=== PATIENT | female | born 1930 | race Caucasian/White ===

== ENCOUNTER 2016-09-18 05:23 | Emergency (ER) | payer OTHER ==
[~2016-09-18] VITALS: Ht 157.5 cm; Wt 49.7 kg
[~2016-09-18 05:23] MED LIST: AREDS PO; ASPIR 8181 M1 PO; ASPIRIN81 M1 PO; CEFTIN500 MG PO; CLEOCIN300 MG PO; CLINDAMYCIN HC300 MG PO; FUROSEMIDE40 MG PO; HYDROCHLOROTHIA25 MG PO; KEFLEX500 MG PO; KLOR-CON M2020 MEQ PO; TOLTERODINE TART4 MG PO; ULTRAM50 MG PO; VITAMIN C1000 MG PO; VITAMIN D31000 UNI2 PO
[2016-09-18 05:55] LABS: HEMATOCRIT 33.9 % (36.0-46.0); MCH 28.4 PG (29.0-34.0); MCHC 31.6 G/DL (30.0-36.0); MCV 89.9 FL (83-99); MEAN PLAT.VOLUME 10.6 uM^3 (9.5-12.4); PLATELET COUNT 206 K/uL (156-360); RBC DIS.WIDTH-CV 15.9 % (11.8-14.6); RBC DIS.WIDTH-SD 52.6 % (39-53); RED BLOOD COUNT 3.77 M/uL (3.80-5.20); WHITE BLOOD COUNT 3.5 K/uL (4.1-10.2)
[2016-09-18 06:15] LABS: CHLORIDE 105 mEq/L (99-109)
[2016-09-18 06:16] LABS: POTASSIUM 3.8 mEq/L (3.7-5.4); SODIUM 143 mEq/L (136-147)
[2016-09-18 06:17] LABS: GLUCOSE 95 mg/dL (70-99)
[2016-09-18 06:19] LABS: ANION GAP 12 MEQ/L (2-14)
[2016-09-18 06:21] LABS: GFR ESTIMATE (CALCULATED) 56 mL/min/; TROP-I INTERPRETATION NEGATIVE; TROPONIN-I < 0.01 ng/mL (0.0-0.30)
[2016-09-18 06:22] LABS: UREA NITROGEN (BUN) 18 mg/dL (9-23)
[2016-09-18 09:37] LABS: TROP-I INTERPRETATION NEGATIVE; TROPONIN-I < 0.01 ng/mL (0.0-0.30)
[2016-09-18] MEDS ORDERED: KEFLEX500 MG PO (11:41)
[2016-09-18 12:09] VITALS: BP 146/59
== END 2016-09-18 12:12 | disposition home or self-care (01) ==
LOC: EME → EDBD 05:23 → EME 05:23
PROVIDERS: Emergency Medicine
DX: R07.89 Other chest pain (principal); S80.812A Abrasion, left lower leg, initial encounter; X58.XXXA Exposure to other specified factors, initial encounter; I10 Essential (primary) hypertension
CPT/HCPCS: 71020; 80048; 84484; 85027; 93005; 99281; 99285

== ENCOUNTER 2016-09-27 03:17 | Emergency (ER) | payer OTHER ==
[~2016-09-27] VITALS: Ht 121.9 cm; Wt 50.0 kg
[2016-09-27 04:19] LABS: HEMATOCRIT 31.9 % (36.0-46.0); MCH 28.9 PG (29.0-34.0); MCHC 32.3 G/DL (30.0-36.0); MCV 89.4 FL (83-99); MEAN PLAT.VOLUME 10.7 uM^3 (9.5-12.4); PLATELET COUNT 211 K/uL (156-360); RBC DIS.WIDTH-CV 15.8 % (11.8-14.6); RBC DIS.WIDTH-SD 52.4 % (39-53); RED BLOOD COUNT 3.57 M/uL (3.80-5.20); WHITE BLOOD COUNT 3.5 K/uL (4.1-10.2)
[2016-09-27 04:30] LABS: ADD MIUA? YES; BILIRUBIN NEGATIVE; BLOOD NEGATIVE; COLOR YELLOW ((YELLOW)); GLUCOSE (STRIP) NEGATIVE; KETONES NEGATIVE; LEUKOCYTES MODERATE; NITRITE NEGATIVE; PROTEIN (STRIP) NEGATIVE; SPECIFIC GRAVITY 1.024 (1.000-1.030)
[2016-09-27 04:32] LABS: CHLORIDE 106 mEq/L (99-109); POTASSIUM 3.8 mEq/L (3.7-5.4); SODIUM 141 mEq/L (136-147)
[2016-09-27 04:33] LABS: GLUCOSE 97 mg/dL (70-99)
[2016-09-27 04:35] LABS: ANION GAP 7 MEQ/L (2-14)
[2016-09-27 04:37] LABS: GFR ESTIMATE (CALCULATED) 50 mL/min/
[2016-09-27 04:38] LABS: UREA NITROGEN (BUN) 21 mg/dL (9-23)
[2016-09-27 04:51] LABS: BACTERIA NONE SEEN /HPF; EPITHELIAL CELLS RARE /HPF; MUCUS TRACE /LPF; RED BLOOD CELLS 0-5 /HPF (0-5); UCUL ADDED? NO
[2016-09-27 07:50] VITALS: BP 154/59
== END 2016-09-27 07:53 | disposition home or self-care (01) ==
LOC: EME 03:17
PROVIDERS: Emergency Medicine
DX: F22 Delusional disorders (principal); T14.8 Other injury of unspecified body region; K21.9 Gastro-esophageal reflux disease without esophagitis; I10 Essential (primary) hypertension
CPT/HCPCS: 80048; 81003; 85027; 99281; 99284

== ENCOUNTER 2016-10-28 23:16 | Observation (INO) | payer OTHER ==
[~2016-10-28] VITALS: Ht 180.3 cm; Wt 52.4 kg
[2016-10-29 00:18] LABS: EOSINOPHIL (%) 3.2 % (0-5); EOSINOPHIL COUNT 0.1 K/uL (0-0.3); HEMATOCRIT 34.4 % (36.0-46.0); IMMATURE GRANULOCYTE (%) 0.3 % (0.0-0.7); INSTRUMENT ABS NEUTROPHIL CT 1.9 K/uL; LYMPHOCYTE COUNT 1.2 K/uL (1.0-2.8); MCH 28.1 PG (29.0-34.0); MCHC 31.7 G/DL (30.0-36.0); MCV 88.7 FL (83-99); MEAN PLAT.VOLUME 10.7 uM^3 (9.5-12.4); MONOCYTE COUNT 0.2 K/uL (0-0.8); NEUTROPHIL (%) 54.2 % (45-76); NEUTROPHIL COUNT 1.9 K/uL (1.8-6.4); PLATELET COUNT 204 K/uL (156-360); RBC DIS.WIDTH-CV 16.1 % (11.8-14.6); RBC DIS.WIDTH-SD 52.6 % (39-53); RED BLOOD COUNT 3.88 M/uL (3.80-5.20); WHITE BLOOD COUNT 3.4 K/uL (4.1-10.2)
[2016-10-29 00:27] LABS: CHLORIDE 105 mEq/L (99-109); POTASSIUM 3.8 mEq/L (3.7-5.4); SODIUM 144 mEq/L (136-147)
[2016-10-29 00:29] LABS: GLUCOSE 131 mg/dL (70-99)
[2016-10-29 00:31] LABS: ANION GAP 9 MEQ/L (2-14)
[2016-10-29 00:33] LABS: GFR ESTIMATE (CALCULATED) 50 mL/min/
[2016-10-29 00:34] LABS: UREA NITROGEN (BUN) 15 mg/dL (9-23)
[2016-10-29 00:39] LABS: TROP-I INTERPRETATION NEGATIVE; TROPONIN-I 0.02 ng/mL (0.0-0.30)
[2016-10-29 04:08] LABS: TOTAL BILIRUBIN 0.6 mg/dL (0.0-1.0)
[2016-10-29 04:10] LABS: ALKALINE PHOSPHATASE 68 IU/L (3-129)
[2016-10-29 04:12] LABS: DIRECT BILIRUBIN 0.2 mg/dL (0.0-0.3)
[2016-10-29 04:36] LABS: HDL CHOLESTEROL 76 MG/DL (Desirable>=50); LDL CHOLESTEROL 98 mg/dL (Desirable<100); NON-HDL CHOLESTEROL 111 mg/dL (Desirable<160); TOTAL CHOLESTEROL 187 mg/dL (Desirable<200); TRIGLYCERIDES 64 MG/DL (Normal: <150)
[2016-10-29 05:33] LABS: TROP-I INTERPRETATION NEGATIVE; TROPONIN-I 0.02 ng/mL (0.0-0.30)
[2016-10-29 07:24] LABS: Estimated Average Glucose 111 mg/dL (70-123); HEMOGLOBIN A1c (GLYCOHEMOGLOB) 5.5 % HGB (Below 5.7)
[2016-10-29 07:58] VITALS: BP 154/70
[2016-10-29 12:00] VITALS: BP 144/65
[2016-10-29 13:55] LABS: TROP-I INTERPRETATION NEGATIVE; TROPONIN-I < 0.01 ng/mL (0.0-0.30)
[2016-10-29 16:00] VITALS: BP 157/70
== END 2016-10-29 17:24 | disposition home or self-care (01) ==
LOC: EME 23:16 → EDOF 10-29 02:49 → ENRESERV 10-29 02:50 → 5WEST 10-29 07:38
PROVIDERS: Emergency Medicine; Hospitalist
DX: R07.9 Chest pain, unspecified (principal); R51 Headache; I10 Essential (primary) hypertension; K21.9 Gastro-esophageal reflux disease without esophagitis; I45.10 Unspecified right bundle-branch block; Z86.711 Personal history of pulmonary embolism; Z86.19 Personal history of other infectious and parasitic diseases; Z90.49 Acquired absence of other specified parts of digestive tract; D72.818 Other decreased white blood cell count; D64.89 Other specified anemias; M81.0 Age-related osteoporosis without current pathological fracture; Z82.49 Family history of ischemic heart disease and other diseases of the circulatory system; Z80.3 Family history of malignant neoplasm of breast; Z82.3 Family history of stroke; Z88.0 Allergy status to penicillin; Z88.2 Allergy status to sulfonamides; Z88.8 Allergy status to other drugs, medicaments and biological substances
CPT/HCPCS: 70450; 71010; 71275; 80048; 80061; 80076; 81003; 83036; 84484; 85025; 85379; 93005; 99281; 99284; G0378; J1200; J1644; J2765

== ENCOUNTER 2016-11-08 11:54 | Emergency (ER) | payer OTHER ==
[~2016-11-08] VITALS: Ht 144.8 cm; Wt 50.2 kg
[2016-11-08 13:27] LABS: EOSINOPHIL (%) 3.4 % (0-5); EOSINOPHIL COUNT 0.1 K/uL (0-0.3); HEMATOCRIT 34.6 % (36.0-46.0); IMMATURE GRANULOCYTE (%) 0.3 % (0.0-0.7); INSTRUMENT ABS NEUTROPHIL CT 2.3 K/uL; LYMPHOCYTE COUNT 0.7 K/uL (1.0-2.8); MCH 28.2 PG (29.0-34.0); MCHC 31.5 G/DL (30.0-36.0); MCV 89.4 FL (83-99); MEAN PLAT.VOLUME 10.4 uM^3 (9.5-12.4); MONOCYTE (%) 9.5 % (3-12); MONOCYTE COUNT 0.3 K/uL (0-0.8); NEUTROPHIL (%) 64.9 % (45-76); NEUTROPHIL COUNT 2.3 K/uL (1.8-6.4); PLATELET COUNT 219 K/uL (156-360); RBC DIS.WIDTH-CV 16.4 % (11.8-14.6); RBC DIS.WIDTH-SD 53.6 % (39-53); RED BLOOD COUNT 3.87 M/uL (3.80-5.20); WHITE BLOOD COUNT 3.5 K/uL (4.1-10.2)
[2016-11-08 13:40] LABS: CHLORIDE 106 mEq/L (99-109); POTASSIUM 4.1 mEq/L (3.7-5.4); SODIUM 142 mEq/L (136-147)
[2016-11-08 13:42] LABS: GLUCOSE 103 mg/dL (70-99)
[2016-11-08 13:43] LABS: ANION GAP 9 MEQ/L (2-14)
[2016-11-08 13:44] LABS: TOTAL BILIRUBIN 0.4 mg/dL (0.0-1.0)
[2016-11-08 13:45] LABS: ALKALINE PHOSPHATASE 70 IU/L (3-129)
[2016-11-08 13:46] LABS: GFR ESTIMATE (CALCULATED) > 59 mL/min/
[2016-11-08 13:47] LABS: UREA NITROGEN (BUN) 19 mg/dL (9-23)
[2016-11-08 13:50] LABS: ADD MIUA? NO; BILIRUBIN NEGATIVE; BLOOD NEGATIVE; COLOR STRAW ((YELLOW)); GLUCOSE (STRIP) NEGATIVE; KETONES NEGATIVE; LEUKOCYTES NEGATIVE; NITRITE NEGATIVE; PROTEIN (STRIP) NEGATIVE; SPECIFIC GRAVITY 1.013 (1.000-1.030); UCUL ADDED? NO; UROBILINOGEN 0.2 MG/DL (0.2-1.0)
[2016-11-08 14:39] LABS: SERUM ETHYL ALCOHOL < 10 mg/dL
[2016-11-08 18:15] VITALS: BP 163/71
== END 2016-11-08 18:19 | disposition home or self-care (01) ==
LOC: EME 11:54
PROVIDERS: Emergency Medicine
DX: F22 Delusional disorders (principal); I10 Essential (primary) hypertension; K21.9 Gastro-esophageal reflux disease without esophagitis; Z85.828 Personal history of other malignant neoplasm of skin
CPT/HCPCS: 71020; 80053; 81003; 85025; 90839; 99281; 99284; G0480

== ENCOUNTER 2017-01-21 23:33 | Emergency (ER) | payer OTHER ==
[~2017-01-21] VITALS: Ht 142.2 cm; Wt 57.1 kg
[2017-01-21 23:56] LABS: HEMATOCRIT 32.8 % (36.0-46.0); MCH 28.8 PG (29.0-34.0); MCV 90.1 FL (83-99); RBC DIS.WIDTH-CV 16.6 % (11.8-14.6); RBC DIS.WIDTH-SD 55.1 % (39-53); RED BLOOD COUNT 3.64 M/uL (3.80-5.20); WHITE BLOOD COUNT 4.3 K/uL (4.1-10.2)
[2017-01-22 00:07] LABS: CHLORIDE 103 mEq/L (99-109); POTASSIUM 3.8 mEq/L (3.7-5.4); SODIUM 142 mEq/L (136-147)
[2017-01-22 00:08] LABS: GLUCOSE 104 mg/dL (70-99)
[2017-01-22 00:10] LABS: ANION GAP 11 MEQ/L (2-14)
[2017-01-22 00:12] LABS: GFR ESTIMATE (CALCULATED) 41 mL/min/
[2017-01-22 00:13] LABS: UREA NITROGEN (BUN) 28 mg/dL (9-23)
[2017-01-22 00:19] LABS: TROP-I INTERPRETATION NEGATIVE; TROPONIN-I < 0.01 ng/mL (0.0-0.30)
[2017-01-22 00:56] LABS: MEAN PLAT.VOLUME 11.2 uM^3 (9.5-12.4); PLAT.SUFFICIENCY ADEQUATE; PLATELET COUNT 215 K/uL (156-360)
[2017-01-22 03:38] LABS: TROP-I INTERPRETATION NEGATIVE; TROPONIN-I < 0.01 ng/mL (0.0-0.30)
[2017-01-22 05:24] VITALS: BP 137/83
== END 2017-01-22 05:58 ==
LOC: EME → EDBD 23:33 → EME 23:33
PROVIDERS: Emergency Medicine
DX: R07.89 Other chest pain (principal); K21.9 Gastro-esophageal reflux disease without esophagitis; I10 Essential (primary) hypertension; F32.9 Major depressive disorder, single episode, unspecified; Z85.828 Personal history of other malignant neoplasm of skin; Z88.2 Allergy status to sulfonamides; Z88.0 Allergy status to penicillin; Z88.1 Allergy status to other antibiotic agents
CPT/HCPCS: 71020; 80048; 84484; 85027; 93005; 99281; 99285; J7030

== ENCOUNTER 2017-02-18 16:31 | Emergency (ER) | payer OTHER ==
[~2017-02-18] VITALS: Ht 121.9 cm; Wt 51.8 kg
[2017-02-18 16:55] VITALS: BP 158/88
[2017-02-18] MEDS ORDERED: TYLENOL REGULA325 MG PO (18:32)
[2017-02-18] MEDS ORDERED: ROBITUSSIN DM118 ML PO (18:32)
== END 2017-02-18 18:24 | disposition home or self-care (01) ==
LOC: EME 16:31
DX: B34.9 Viral infection, unspecified (principal); J04.0 Acute laryngitis; I10 Essential (primary) hypertension; K21.9 Gastro-esophageal reflux disease without esophagitis; M81.0 Age-related osteoporosis without current pathological fracture; Z88.2 Allergy status to sulfonamides; Z88.0 Allergy status to penicillin; Z88.1 Allergy status to other antibiotic agents
CPT/HCPCS: 99281; 99283

== ENCOUNTER 2017-07-17 23:22 | Inpatient (IN) | payer OTHER ==
[~2017-07-17] VITALS: Ht 157.5 cm; Wt 50.9 kg
[~2017-07-17 23:22] MED LIST changes: +ROBITUSSIN DM118 ML PO; +TYLENOL REGULA325 MG PO
[2017-07-17 23:47] LABS: APPEARANCE CLEAR ((CLEAR)); BILIRUBIN NEGATIVE; BLOOD NEGATIVE; COLOR COLORLESS ((YELLOW)); GLUCOSE (STRIP) NEGATIVE; KETONES NEGATIVE; LEUKOCYTES NEGATIVE; NITRITE NEGATIVE; PROTEIN (STRIP) NEGATIVE; SPECIFIC GRAVITY 1.006 (1.000-1.030); UCUL ADDED? NO; UROBILINOGEN 0.2 MG/DL (0.2-1.0)
[2017-07-18 00:45] LABS: BASOPHIL (%) 0.5 % (0-1); EOSINOPHIL COUNT 0.2 K/uL (0-0.3); HEMATOCRIT 37.3 % (36.0-46.0); HEMOGLOBIN 12.2 G/DL (11.9-15.5); IMMATURE GRANULOCYTE (%) 0.2 % (0.0-0.7); LYMPHOCYTE (%) 27.5 % (15-42); LYMPHOCYTE COUNT 1.2 K/uL (1.0-2.8); MCHC 32.7 G/DL (30.0-36.0); MCV 88.8 FL (83-99); MONOCYTE (%) 8.8 % (3-12); MONOCYTE COUNT 0.4 K/uL (0-0.8); NEUTROPHIL COUNT 2.5 K/uL (1.8-6.4); PLATELET COUNT 234 K/uL (156-360); RBC DIS.WIDTH-CV 17.3 % (11.8-14.6); RBC DIS.WIDTH-SD 57.1 % (39-53); WHITE BLOOD COUNT 4.2 K/uL (4.1-10.2)
[2017-07-18 01:01] LABS: ALBUMIN 4.5 g/dL (3.2-4.8); CHLORIDE 101 mEq/L (99-109); POTASSIUM 3.9 mEq/L (3.7-5.4); SODIUM 143 mEq/L (136-147)
[2017-07-18 01:03] LABS: GLUCOSE 106 mg/dL (70-99)
[2017-07-18 01:04] LABS: TOTAL PROTEIN 7.7 g/dL (6.4-8.3)
[2017-07-18 01:05] LABS: TOTAL BILIRUBIN 0.5 mg/dL (0.0-1.0)
[2017-07-18 01:07] LABS: ALKALINE PHOSPHATASE 89 IU/L (3-129); GFR ESTIMATE (CALCULATED) 56 mL/min/
[2017-07-18 01:08] LABS: UREA NITROGEN (BUN) 15 mg/dL (9-23)
[2017-07-18 01:09] LABS: AST (GOT) 24 IU/L (2-34)
[2017-07-18 01:10] LABS: ALT (GPT) 16 IU/L (3-49)
[2017-07-18 01:11] LABS: LIPASE 47 U/L (1.0-51.0)
[2017-07-18 06:20] VITALS: BP 188/82
[2017-07-18 11:30] VITALS: BP 126/65
[2017-07-18] MEDS ORDERED: PREPARATION H C51 G1 PR (11:52)
[2017-07-18 16:02] VITALS: BP 115/58
[2017-07-18 20:02] VITALS: BP 141/61
[2017-07-18 23:58] VITALS: BP 144/62
[2017-07-19 03:36] VITALS: BP 179/85
[2017-07-19 05:51] LABS: HEMATOCRIT 33.6 % (36.0-46.0); HEMOGLOBIN 10.7 G/DL (11.9-15.5); MCH 28.3 PG (29.0-34.0); MCHC 31.8 G/DL (30.0-36.0); MCV 88.9 FL (83-99); RBC DIS.WIDTH-CV 17.7 % (11.8-14.6); RBC DIS.WIDTH-SD 57.5 % (39-53); RED BLOOD COUNT 3.78 M/uL (3.80-5.20)
[2017-07-19 06:23] LABS: CHLORIDE 105 MEQ/L (99-109); GFR ESTIMATE (CALCULATED) 35 mL/min/; GLUCOSE 86 mg/dL (70-99); POTASSIUM 4.3 MEQ/L (3.7-5.4); SODIUM 142 MEQ/L (136-147)
[2017-07-19 06:36] LABS: CREATININE 1.5 MG/DL (0.6-1.3); UREA NITROGEN (BUN) 28 mg/dL (9-23)
[2017-07-19 07:18] LABS: PLATELET COUNT 219 K/uL (156-360)
[2017-07-19 08:00] VITALS: BP 125/63
[2017-07-19 11:38] VITALS: BP 133/67
[2017-07-19 15:50] VITALS: BP 144/64
[2017-07-19 19:17] VITALS: BP 146/74
[2017-07-19 23:21] VITALS: BP 154/70
[2017-07-20 04:14] VITALS: BP 162/70
[2017-07-20 05:45] VITALS: BP 138/70
[2017-07-20 05:56] LABS: HEMATOCRIT 32.6 % (36.0-46.0); HEMOGLOBIN 10.5 G/DL (11.9-15.5); MCH 28.7 PG (29.0-34.0); MCHC 32.2 G/DL (30.0-36.0); MCV 89.1 FL (83-99); PLATELET COUNT 225 K/uL (156-360); RBC DIS.WIDTH-CV 17.6 % (11.8-14.6); RBC DIS.WIDTH-SD 58.4 % (39-53); RED BLOOD COUNT 3.66 M/uL (3.80-5.20)
[2017-07-20 06:16] LABS: CHLORIDE 106 MEQ/L (99-109); GFR ESTIMATE (CALCULATED) 56 mL/min/; GLUCOSE 83 mg/dL (70-99); POTASSIUM 4.1 MEQ/L (3.7-5.4); SODIUM 141 MEQ/L (136-147); UREA NITROGEN (BUN) 22 mg/dL (9-23)
[2017-07-20 07:16] VITALS: BP 149/71
[2017-07-20 15:33] VITALS: BP 158/74
[2017-07-20 23:37] VITALS: BP 138/63
[2017-07-21 07:56] VITALS: BP 177/78
[2017-07-21] MEDS ORDERED: AMLODIPINE BESY10 MG PO (11:13)
[2017-07-21] MEDS ORDERED: FAMOTIDINE20 MG PO (11:14)
[2017-07-21] MEDS ORDERED: ELIQUIS5 MG PO (12:14)
[2017-07-21] MEDS ORDERED: ELIQUIS2.5 MG PO (12:15)
== END 2017-07-21 14:28 | disposition home or self-care (01) | DRG 176 ==
LOC: EME 23:22 → 5SOUTH 07-18 05:22 → EDOF 07-18 05:22 → ENRESERV 07-18 05:23 → 5SOUTH 07-18 06:14
PROVIDERS: Emergency Medicine; Hospitalist
DX: I26.99 Other pulmonary embolism without acute cor pulmonale (principal); N28.9 Disorder of kidney and ureter, unspecified; D64.9 Anemia, unspecified; K59.00 Constipation, unspecified; I10 Essential (primary) hypertension; K21.9 Gastro-esophageal reflux disease without esophagitis; Z66 Do not resuscitate; Z86.711 Personal history of pulmonary embolism; Z85.828 Personal history of other malignant neoplasm of skin
CPT/HCPCS: 74177; 80048; 80053; 81003; 83605; 83690; 85025; 85027; 93971; 99281; 99285; J1650; J7030